=== PATIENT | female | born 1995 | race African-American/Black ===

== ENCOUNTER 2020-01-30 16:17 | Emergency (ER) | payer OTHER, SELFPAY ==
[2020-01-30] MEDS ORDERED: Acetaminophen 500 MG TAB ONE ×2 (16:33)
== END 2020-01-30 17:44 | disposition home or self-care (01) ==
LOC: ERS 16:17
DX: J02.9 Acute pharyngitis, unspecified (principal); I10 Essential (primary) hypertension
CPT/HCPCS: 87081; 87430; 87804; 99283

== ENCOUNTER 2020-02-03 09:46 | Emergency (ER) | payer OTHER ==
[2020-02-03] MEDS ORDERED: Acetaminophen 500 MG TAB ONE ×2 (09:57→09:58)
== END 2020-02-03 10:59 | disposition home or self-care (01) ==
LOC: ERS 09:46
DX: J06.9 Acute upper respiratory infection, unspecified (principal); Z79.899 Other long term (current) drug therapy; Z20.828 Contact with and (suspected) exposure to other viral communicable diseases; I10 Essential (primary) hypertension
CPT/HCPCS: 99282

== ENCOUNTER 2024-04-30 16:44 | Emergency (ER) | payer SELFPAY | END 2024-04-30 18:00 | disposition home or self-care (01) | LOC: ERS 16:44 | DX: M25.522 Pain in left elbow (principal); I10 Essential (primary) hypertension; Z79.899 Other long term (current) drug therapy ==